=== PATIENT | female | born 1950 | race Caucasian/White ===

== ENCOUNTER 2018-01-29 15:13 | Inpatient (IN) ==
[2018-01-29] MEDS ORDERED: Ipratropium/Albuterol Neb 3 ML IH ONE (15:31)
[2018-01-29] MEDS ORDERED: methylPREDNISolone 125 MG/2 ML VIAL IVP ONE (15:31)
--- NOTE | 2018-01-29 15:35 | Emergency Department Note ---
Disposition Clinical Impression: COPD exacerbation Disposition: Admitted As Inpatient Condition: Good Forms: ED Satisfaction Letter Time of Disposition: 16:25 SOB HPI - General Chief Complaint: ED Shortness of Breath/Dyspnea Stated Complaint: HARSHAD Time Seen by Provider: 01/29/18 15:20 Source: patient Limitations: no limitations Nursing Notes Reviewed: Yes Vital Signs Reviewed: Yes - History of Present Illness 67-year-old female presents emergency room for shortness of breath. Onset 7 days ago. Went to urgent care over the weekend and was prescribed Augmentin and was given a steroid shot. No improvement on Thursday sell her PCP is switched her to Zithromax. She was also given breathing rest peeled treatments. She states that shortness of breath has not improved. Having problems with amb ulation. She denies any chest pain. No documented fevers. No sputum production. No lower leg pain or swelling. No history DVT or PE. She states she has never been diagnosed with COPD. History of smoking. No smoking in the last 12 years. - Related Data Allergies Allergy/AdvReac Type Severity Reaction Status Date / Time No Known Allergies Allergy Verified 01/29/18 15:23 All systems ED: reviewed and negative except as stated. Constitutional: Reports: as per HPI. Denies: fever Cardiovascular: Reports: dyspnea on exertion. Denies: chest pain, palpitations Respiratory: Reports: cough, dyspnea, wheezes Gastrointestinal: Reports: as per HPI Genitourinary: Reports: as per HPI Musculoskeletal: Reports: as per HPI Integumentary: Reports: as per HPI Neurological: Reports: as per HPI Psychiatric: Reports: as per HPI Endocrine: Reports: as per HPI Hematological/Lymphatic: Reports: as per HPI Allergic/Immunologic: Reports: as per HPI Past Medical History - Past Medical History Medical history: Reports: hypertension Psychiatric history: Reports: no psych history - Social History Smoking Status: Former smoker Smokeless Tobacco Status: No Alcohol use: Reports: none Drug use: Reports: none Physical Exam - General Limitations: no limitations General appearance: alert, in no apparent distress - Head Head exam: atraumatic, normocephalic - Eye Eye exam: Present: normal appearance - ENT ENT exam: normal exam, normal oropharynx - Neck Neck exam: Present: normal inspection - Chest Chest inspection: Present: symmetric chest wall rise - Respiratory Respiratory exam: Present: wheezes (Positive bilateral end expiratory wheezing.). Absent: respiratory distress - Cardiovascular Cardiovascular exam: Present: normal rhythm, tachycardia - Abdominal Exam Abdominal exam: Present: soft, Non-Tender, normal bowel sounds - Extremities Exam Extremities exam: Present: normal inspection - Expanded Lower Extremity Exam Hip/Pelvis exam: Present: normal inspection - Back Exam Back exam: Present: normal inspection - Neurological Exam Neurological exam: Present: alert, oriented X3 - Psychiatric Psychiatric exam: Present: normal affect, normal mood - Skin Skin exam: Present: warm, dry, intact Course Vital Signs Temperature 98.0 F 01/29/18 15:15 Pulse Rate 106 01/29/18 15:15 Respiratory Rate 24 01/29/18 15:15 Blood Pressure 173/108 01/29/18 15:15 O2 Sat by Pulse Oximetry 83 01/29/18 15:15 Temperature 98.0 F 01/29/18 15:17 Pulse Rate 86 01/29/18 16:22 Respiratory Rate 22 01/29/18 16:22 Blood Pressure 141/72 01/29/18 16:22 O2 Sat by Pulse Oximetry 100 01/29/18 16:22 Oxygen Delivery Oxygen Delivery Nasal Cannula Shortness of Breath/Dyspnea - MDM Narrative Medical decision making narrative: admit for copd flare up steroids given duoneb in ER admit for pulm txs - Medical Records Medical records reviewed: Yes I reviewed the patient's medical records. - Lab Data Lab results reviewed: Yes I reviewed the patient's lab results. Result diagrams: 01/29/18 15:30 01/29/18 15:30 Lab Results 01/29/18 01/29/18 01/29/18 Range/Units 15:30 15:30 15:30 WBC 6.9 (4.3-11.1) K/mcL RBC 5.50 H (3.82-4.97) M/mcL Hgb 16.6 H (11.5-15.4) g/dL Hct 47.9 H (35.3-44.9) % MCV 87.1 (83.0-100.0) fL MCH 30.2 (28.0-33.3) pg MCHC 34.7 (31.6-35.5) g/dL RDW 11.5 (11.5-14.5) % Plt Count 252 (140-400) K/mcL MPV 9.8 (9.4-12.4) fL Immature Gran % 0.3 (0-4) % Seg Neutrophils % 53.6 % Lymphocytes % 35.1 % Monocytes % 8.8 % Eosinophils % 1.3 % Basophils % 0.9 % Neutrophils # 3.7 (1.6-8.9) K/mcL Lymphocytes # 2.4 (0.6-4.6) K/mcL Monocytes # 0.6 (0.0-1.3) K/mcL Eosinophils # 0.1 (0.0-0.6) K/mcL Basophils # 0.1 (0.0-0.2) K/mcL Platelet Estimate Normal (Normal) Sodium 138 (136-145) mEq/L Potassium 3.5 (3.5-5.1) mEq/L Chloride 95 L (98-107) mEq/L Carbon Dioxide 35 H (23-29) mEq/L BUN 10 (8-23) mg/dL Creatinine 0.50 L (0.60-1.20) mg/dL Est GFR ( Amer) > 60 (> 60) Est GFR (Non-Af Amer) > 60 (> 60) BUN/Creatinine Ratio 20 (6-26) Glucose 97 (70-105) mg/dL Calculated Osmolality 285 (280-300) Lactic Acid 0.9 (0.5-2.2) mmol/L Calcium 9.7 (8.6-10.3) mg/dL Troponin I < 0.03 (< 0.04) ng/mL - Radiology Data Radiology results reviewed: Yes I reviewed the patient's radiology results. - EKG Data EKG attestation: Yes I reviewed and interpreted this EKG. EKG results narrative: EKG shows a rate of 96. Normal sinus rhythm. Normal axis. CA interval 124. QRS 77. QTC 419. His signs acute ischemia.
[2018-01-29 15:52] LABS: Basophils # 0.1 K/mcL (0.0-0.2); Basophils % 0.9 %; Eosinophils # 0.1 K/mcL (0.0-0.6); Eosinophils % 1.3 %; Hematocrit 47.9 % (35.3-44.9); Hemoglobin 16.6 g/dL (11.5-15.4); Immature Granulocytes % 0.3 % (0-4); Lymphocytes # 2.4 K/mcL (0.6-4.6); Lymphocytes % 35.1 %; Mean Corpuscular HGB Conc 34.7 g/dL (31.6-35.5); Mean Corpuscular Hemoglobin 30.2 pg (28.0-33.3); Mean Corpuscular Volume 87.1 fL (83.0-100.0); Mean Platelet Volume 9.8 fL (9.4-12.4); Monocytes # 0.6 K/mcL (0.0-1.3); Monocytes % 8.8 %; Neutrophils # 3.7 K/mcL (1.6-8.9); Platelet Count 252 K/mcL (140-400); Red Cell Distribution Width 11.5 % (11.5-14.5); Segmented Neutrophils % 53.6 %
[2018-01-29 16:10] LABS: BUN/Creatinine Ratio 20 (6-26); Blood Urea Nitrogen 10 mg/dL (8-23); Carbon Dioxide 35 mEq/L (23-29); Chloride 95 mEq/L (98-107); Glucose 97 mg/dL (70-105); Potassium 3.5 mEq/L (3.5-5.1); Sodium 138 mEq/L (136-145); eGFR For Non-African Americans > 60 (> 60)
[2018-01-29 16:11] LABS: Calcium 9.7 mg/dL (8.6-10.3); Osmolality,Calculated 285 (280-300); Troponin I < 0.03 ng/mL (< 0.04)
[2018-01-29 16:12] LABS: Platelet Estimate Normal (Normal)
[2018-01-29] MEDS ORDERED: Albuterol 2.5 MG/3 ML NEBULIZER IH PRN (16:40)
[2018-01-29] MEDS ORDERED: Naloxone 0.4 MG/ML INJ IVP PRN (16:41)
[2018-01-29] MEDS ORDERED: Acetaminophen 325 MG TABLET PO PRN (16:41)
[2018-01-29] MEDS ORDERED: 0.9 % Sodium Chloride 1,000 ML IVC SCH (17:15)
--- NOTE | 2018-01-29 17:17 | Internal Med History&Physical ---
Date of Encounter: 01/29/18 Time of Encounter: 17:14 Internal Medicine - H&P: HPI Chief complaint: Shortness of breath Admitted From: Home Plans for Post Hospital Care: Home History of present illness: Ms. Da Silva is a 67 year old female with PMH of HTN, ex-smoker who presented to the ER with complains of SOB which started about a week ago, she was apparently in her usual state of health till 7 days ago when she developed acute onset difficulty in breathing associated with chest tightness. She went to urgent care over the weekend and was prescribed Augmentin and was given a steroid shot. She had no improvement and re-presented to her PCP who switched her antibiotic to Zirthromax. She reports having had some improvement, but on the way to her mail box today, she couldn't catch her breath and she developed a hacking dry cough with significant respiratory distress She denies Orthopnea, ankle swelling, chest pain, she denies calf tenderness, She has no sick contacts or recent travels She is yet to receive her flu shot but denies any myalgias, sore throat, rhinorrhea. She is up to date with her immunization She denies n/v/d, abdominal pain, headaches or any neurologic symptoms On presentation to the ER, she was hypoxic to 87% on room air and improved with O2 supplement, steroids and breathing treatment Work up shows mild hemoconcentration, metabolic alkalosis, BNP and trop negative. CXR showed mild COPD She will be admitted inpatient per UR for COPDE with hypoxia requiring O2 supplementation, she is full code Past Med Surg Social Fam HX - Past Medical History Medical history: hypertension Psychiatric history: no psych history - Past Surgical History Additional surgical history: back, tubal ligation - Social History Smoking Status: Former smoker Smokeless Tobacco Status: No Alcohol use: none Drug use: none Internal Medicine - H&P: Meds Ascorbic Acid [Vitamin C] 500 mg PO DAILY 01/29/18 [History] Aspirin [Lo-Dose Aspirin EC] 81 mg PO DAILY 01/29/18 [History] Calcium Carb,Cit/D3/Phytostrol [Citracal D + Heart Health Tab] 1 tab PO DAILY 01/29/18 [History] Cholecalciferol (D-3) [Vitamin D] 1,000 unit PO DAILY 01/29/18 [History] Garlic [Daily Garlic Once-A-Day] 400 mg PO DAILY 01/29/18 [History] Ipratropium/Albuterol Sulfate [Iprat-Albut 0.5-3(2.5) mg/3 ml] 3 ml IH Q6H PRN 01/29/18 [History] Lisinopril/Hydrochlorothiazide [Zestoretic 20-25 mg Tablet] 1 tab PO DAILY 01/29/18 [History] Magnesium Oxide [Magnesium] 400 mg PO DAILY 01/29/18 [History] Potassium 99 mg PO DAILY 01/29/18 [History] Vitamin A 10,000 unit PO DAILY 01/29/18 [History] Vitamin E 1,000 unit PO DAILY 01/29/18 [History] Zinc Gluconate 100 mg PO DAILY 01/29/18 [History] amLODIPine [Norvasc] 5 mg PO DAILY 01/29/18 [History] Allergy/AdvReac Type Severity Reaction Status Date / Time No Known Allergies Allergy Verified 01/29/18 16:53 All Systems PM: A 10-system review of systems was performed and is negative for pertinent findings except as documented above in the HPI. - Constitutional Constitutional: as per HPI - EENT Eyes: as per HPI Ears: as per HPI Nose, mouth and throat: as per HPI - Cardiovascular Cardiovascular ROS IM: as per HPI - Respiratory Respiratory: as per HPI - Gastrointestinal Gastrointestinal: as per HPI - Genitourinary Genitourinary: as per HPI - Musculoskeletal Musculoskeletal ROS IM: as per HPI - Integumentary Integumentary IM: as per HPI - Neurological Neurological ROS: as per HPI - Hematologic/Lymphatic Hematologic/Lymphatic: as per HPI - Constitutional Vitals: Temp Pulse Resp BP Pulse Ox 98.0 F 86 22 141/72 100 01/29/18 15:17 01/29/18 16:22 01/29/18 16:22 01/29/18 16:22 01/29/18 16:22 General appearance: Present: cachectic, A&O X 3, pleasant, no acute distress, underweight Exam: see below - Head Head exam: Present: atraumatic, normocephalic - Eye Eye exam: Present: PERRL, conjuntiva pink, sclera anicteric Pupils: Present: PERRL - Neck Neck exam general surgery: Present: supple, trachea midline. Absent: lymphadenopathy - Respiratory Respiratory exam: Present: decreased breath sounds. Absent: accessory muscle use, rales, rhonchi, wheezes - Cardiovascular Cardiovascular exam: Present: RRR, +S1, +S2. Absent: diastolic murmur, gallop, rubs, systolic murmur - GI/Abdominal GI/Abdominal exam: Present: normal bowel sounds, soft, no peritoneal signs. Absent: distended, tenderness - Extremities Exam Extremities exam: Present: warm, radial pulses palpable and symmetrical. Absent: calf tenderness, cyanotic, pedal edema - Neurological Exam Neurological exam: Present: alert, CN II-XII intact, oriented X3, no focal defic its. Absent: pronater drift, facial droop, speech deficit - Skin Skin exam: Present: dry, intact Internal Med - H&P Results - Labs CBC & Chem 7: 01/29/18 15:30 01/29/18 15:30 Labs: Short CBC 01/29/18 Range/Units 15:30 WBC 6.9 (4.3-11.1) K/mcL Hgb 16.6 H (11.5-15.4) g/dL Hct 47.9 H (35.3-44.9) % Plt Count 252 (140-400) K/mcL Neutrophils # 3.7 (1.6-8.9) K/mcL BMP 01/29/18 15:30 Sodium 138 Potassium 3.5 Chloride 95 L Carbon Dioxide 35 H BUN 10 Creatinine 0.50 L Glucose 97 Calcium 9.7 Cardiac Enzymes 01/29/18 Range/Units 15:30 Troponin I < 0.03 (< 0.04) ng/mL - Impressions ITS Impressions Chest X-Ray 01/29/18 15:31 IMPRESSION: No acute process. Mild COPD D/ / Edwin Singh MD / Edwin Singh MD Interpreting Provider: Edwin Singh MD - Assessment and plan (1) COPD exacerbation Current Visit: Yes Status: Acute Assessment and plan: Continue duonebs q4h Alb q2prn Levaquin 500mg po daily Prednisone 40mg po daily Obtain ECHO O2 supplement, wean as tolerated may need walking test prior to discharge (2) Hypoxia Current Visit: Yes Status: Acute (3) Malnutrition Current Visit: Yes Status: Chronic Assessment and plan: BMI 17 with cachexia Nicking Machine Operator consult Qualifiers: Malnutrition type: protein-calorie malnutrition Protein-calorie malnutrition severity: unspecified severity Qualified Code(s): E46 - Unsp ecified protein-calorie malnutrition (4) Hypertension Current Visit: Yes Status: Chronic Assessment and plan: Resume home norvasc, Lisinopril-HCTZ Qualifiers: Hypertension type: essential hypertension Qualified Code(s): I10 - Essential (primary) hypertension (5) Dehydration Current Visit: Yes Status: Acute Assessment and plan: evidenced by metab alkalosis and hemoconcentration gentle hydration with saline -1000cc only Follow rpt labs a.m - Time Spent With Patient Total time spent is greater than 50% in coordination of care (as documented) at patient's floor/unit and/or counseling patient:
[2018-01-29] MEDS: Ipratropium/Albuterol Neb 3 ML IH SCH ×2 (19:20→22:54)
[2018-01-29] MEDS: levoFLOXacin 500 MG TABLET PO SCH (19:24)
[2018-01-30] MEDS: Ipratropium/Albuterol Neb 3 ML IH SCH ×4 (04:35→23:45)
[2018-01-30 05:03] LABS: Basophils % 0.3 %; Immature Granulocytes % 0.3 % (0-4); Lymphocytes # 0.6 K/mcL (0.6-4.6); Lymphocytes % 18.9 %; Mean Corpuscular Hemoglobin 30.3 pg (28.0-33.3); Mean Corpuscular Volume 86.6 fL (83.0-100.0); Mean Platelet Volume 9.9 fL (9.4-12.4); Monocytes # 0.1 K/mcL (0.0-1.3); Monocytes % 3.4 %; Neutrophils # 2.5 K/mcL (1.6-8.9); Platelet Count 226 K/mcL (140-400); Red Blood Count 4.62 M/mcL (3.82-4.97); Red Cell Distribution Width 11.5 % (11.5-14.5); Segmented Neutrophils % 77.1 %
[2018-01-30] MEDS: *HR* Enoxaparin 40 MG/0.4 ML SYRINGE SQ SCH (05:11)
[2018-01-30 05:20] LABS: Platelet Estimate Normal (Normal); Reactive Lymphocytes Present (Not Present)
[2018-01-30 05:22] LABS: BUN/Creatinine Ratio 19 (6-26); Blood Urea Nitrogen 8 mg/dL (8-23); Calcium 8.9 mg/dL (8.6-10.3); Carbon Dioxide 33 mEq/L (23-29); Chloride 99 mEq/L (98-107); Glucose 132 mg/dL (70-105); Osmolality,Calculated 284 (280-300); Potassium 3.9 mEq/L (3.5-5.1); Sodium 137 mEq/L (136-145); eGFR For Non-African Americans > 60 (> 60)
[2018-01-30] MEDS: predniSONE 20 MG TABLET PO SCH (09:00)
[2018-01-30] MEDS: Ascorbic Acid 500 MG TABLET PO SCH (09:00)
[2018-01-30] MEDS: Cholecalciferol (D-3) 1,000 UNIT TABLET PO SCH (09:00)
[2018-01-30] MEDS: Aspirin Enteric Coated 81 MG Tablet PO SCH (09:00)
[2018-01-30] MEDS: D3 PO SCH (09:01)
[2018-01-30] MEDS: CALCIUM CARB CIT PO SCH (09:01)
[2018-01-30] MEDS: PHYTOSTROL PO SCH (09:01)
[2018-01-30] MEDS: amLODIPine 5 MG TABLET PO SCH (09:01)
--- NOTE | 2018-01-30 09:08 | Internal Med Progress Note ---
Hospitalist Progress Note - Encounter Date of Encounter: 01/30/18 Time of Encounter: 08:35 - Subjective Interval History: 67 F admitted and being managed for COPDE with hypoxia She reports clinical improvement, no new complains, still on O2 - Exam Vitals: Temp Pulse Resp BP Pulse Ox 97.6 F 91 16 134/76 94 01/30/18 07:24 01/30/18 07:24 01/30/18 07:24 01/30/18 07:24 01/30/18 07:24 Exam: Vital signs noted Gen: not in distress, pleasant HEENT: Moist oral mucosa, not cyanotic, not jaundiced, no conjunctival pallor Chest: equal chest movement, no chest wall tenderness, no erythema Resp: CTAB, no added sounds Heart: S1, S2 only, no m/g/r Abdomen: soft, not tender, no palpably enlarged organs Extremities: No piting edema bilaterally Neuro: AAOX3, no focal deficits Psych: Appropriate mood and affect - Assessment and Plan (1) COPD exacerbation Current Visit: Yes Status: Acute Assessment and Plan: Continue duonebs q4h Alb q2prn Levaquin 500mg po daily Prednisone 40mg po daily Obtain ECHO, pending O2 supplement, wean as tolerated may need walking test prior to discharge (2) Hypoxia Current Visit: Yes Status: Acute Assessment and Plan: Continue o2 Wean as tolerated If continues to require O2 after 24 hrs, will perform walking test (3) Malnutrition Current Visit: Yes Status: Chronic Assessment and Plan: BMI 17 with cachexia Ground Crew Chief consult (4) Hypertension Current Visit: Yes Status: Chronic Assessment and Plan: Continue home norvasc, Lisinopril-HCTZ (5) Dehydration Current Visit: Yes Status: Resolved Assessment and Plan: evidenced by metab alkalosis and hemoconcentration Resolved with IVF hydration DVT Prophylaxis: SQ heparin - Time Spent with Patient Total time spent is greater than 50% in coordination of care (as documented) at patient's floor/unit and/or counseling patient: Plan of Care Discussed with: patient Internal Medicine: Result - Labs CBC & Chem 7: 01/30/18 04:26 01/30/18 04:26 Labs: Short CBC 01/29/18 01/30/18 Range/Units 15:30 04:26 WBC 6.9 3.2 L D (4.3-11.1) K/mcL Hgb 16.6 H 14.0 D (11.5-15.4) g/dL Hct 47.9 H 40.0 (35.3-44.9) % Plt Count 252 226 (140-400) K/mcL Neutrophils # 3.7 2.5 (1.6-8.9) K/mcL BMP 01/29/18 01/30/18 15:30 04:26 Sodium 138 137 Potassium 3.5 3.9 Chloride 95 L 99 Carbon Dioxide 35 H 33 H BUN 10 8 Creatinine 0.50 L 0.42 L Glucose 97 132 H Calcium 9.7 8.9 Cardiac Enzymes 01/29/18 Range/Units 15:30 Troponin I < 0.03 (< 0.04) ng/mL - Impressions Impressions Chest X-Ray 01/29/18 15:31 IMPRESSION: No acute process. Mild COPD D/ / Edwin Singh MD / Edwin Singh MD Interpreting Provider: Edwin Singh MD Consult Discharge Plan - Plan Referrals: Yudi Araya MD [Primary Care Provider] - (3) Malnutrition Qualifiers: Malnutrition type: protein-calorie malnutrition Protein-calorie malnutrition severity: unspecified severity Qualified Code(s): E46 - Unspecified protein- calorie malnutrition (4) Hypertension Qualifiers: Hypertension type: essential hypertension Qualified Code(s): I10 - Essential (primary) hypertension
[2018-01-30] MEDS: levoFLOXacin 500 MG TABLET PO SCH (16:43)
[2018-01-31] MEDS: Ipratropium/Albuterol Neb 3 ML IH SCH ×4 (04:38→22:04)
[2018-01-31] MEDS: *HR* Enoxaparin 40 MG/0.4 ML SYRINGE SQ SCH (05:06)
[2018-01-31] MEDS: amLODIPine 5 MG TABLET PO SCH (08:39)
[2018-01-31] MEDS: Cholecalciferol (D-3) 1,000 UNIT TABLET PO SCH (08:39)
[2018-01-31] MEDS: Aspirin Enteric Coated 81 MG Tablet PO SCH (08:40)
[2018-01-31] MEDS: Ascorbic Acid 500 MG TABLET PO SCH (08:40)
[2018-01-31] MEDS: predniSONE 20 MG TABLET PO SCH (08:40)
[2018-01-31] MEDS: D3 PO SCH (09:12)
[2018-01-31] MEDS: CALCIUM CARB CIT PO SCH (09:12)
[2018-01-31] MEDS: PHYTOSTROL PO SCH (09:12)
--- NOTE | 2018-01-31 09:57 | Internal Med Progress Note ---
Hospitalist Progress Note - Encounter Date of Encounter: 01/31/18 Time of Encounter: 09:57 - Subjective Interval History: 67 F admitted and being managed for COPDE with hypoxia She reports clinical improvement, no new complains, still on O2 per RN, O2 dropped to 70s when patient got up to go to restroom Will perform 6 minutes walk test today Continue current management - Exam Vitals: Temp Pulse Resp BP Pulse Ox 97.5 F L 91 16 148/82 94 01/31/18 07:39 01/31/18 07:39 01/31/18 07:39 01/31/18 07:39 01/31/18 07:39 Exam: Vital signs noted Gen: not in distress, pleasant HEENT: Moist oral mucosa, not cyanotic, not jaundiced, no conjunctival pallor Chest: equal chest movement, no chest wall tenderness, no erythema Resp: CTAB, no added sounds, diminished air entry on lung bases Heart: S1, S2 only, no m/g/r Abdomen: soft, not tender, no palpably enlarged organs Extremities: No piting edema bilaterally Neuro: AAOX3, no focal deficits Psych: Appropriate mood and affect - Assessment and Plan (1) COPD exacerbation Current Visit: Yes Status: Acute Assessment and Plan: Continue duonebs q4h Alb q2prn Levaquin 500mg po daily Prednisone 40mg po daily Obtain ECHO, pending O2 supplement, wean as tolerated walking test today (2) Hypoxia Current Visit: Yes Status: Acute Assessment and Plan: Continue o2 Wean as tolerated 6 mins walk test today (3) Malnutrition Current Visit: Yes Status: Chronic Assessment and Plan: BMI 17 with cachexia Application Technician consulted, input noted and appreciated, continue ensure (4) Hypertension Current Visit: Yes Status: Chronic Assessment and Plan: Continue home norvasc, Lisinopril-HCTZ (5) Dehydration Current Visit: Yes Status: Resolved Assessment and Plan: evidenced by metab alkalosis and hemoconcentration Resolved with IVF hydration DVT Prophylaxis: SQ heparin - Time Spent with Patient Total time spent is greater than 50% in coordination of care (as documented) at patient's floor/unit and/or counseling patient: Internal Medicine: Result - Labs CBC & Chem 7: 01/30/18 04:26 01/30/18 04:26 Consult Discharge Plan - Plan Referrals: Marshal,Yudi Vianey, MD [Primary Care Provider] - (3) Malnutrition Qualifiers: Malnutrition type: protein-calorie malnutrition Protein-calorie malnutrition severity: unspecified severity Qualified Code(s): E46 - Unspecified protein- calorie malnutrition (4) Hypertension Qualifiers: Hypertension type: essential hypertension Qualified Code(s): I10 - Essential (primary) hypertension
[2018-01-31] MEDS: levoFLOXacin 500 MG TABLET PO SCH (16:33)
[2018-02-01] MEDS: Ipratropium/Albuterol Neb 3 ML IH SCH ×2 (04:07→10:13)
[2018-02-01] MEDS: *HR* Enoxaparin 40 MG/0.4 ML SYRINGE SQ SCH (05:53)
[2018-02-01 07:25] VITALS: BP 131/87
--- NOTE | 2018-02-01 09:40 | Discharge Summary ---
- NOTES TO OUTPATIENT PROVIDER Notes to Outpatient Provider: Patient was admitted for COPDE, with hypoxia. Incidental diagnosis of severe malnutrition. She has made significant clinical improvement and dishcarged home on prednisone taper, levaquin and symbicort. Jute Bag Cutting Machine Operator also recommended ensure enlive BID with meals. PFT is scheduled as out-patient. Follow up with own PCP and recommed referal to hand packer/packager. She also qualified for O2 , dropping in saturation to 86% in 1 minute of exertion. Discharged home with O2. Orders not resulted at time of discharge: Pending orders 01/29/18 15:31 ECG 12 lead ECG [ECG] Stat Date of Encounter: 02/01/18 Time of Encounter: 09:40 - Discharge Diagnosis (1) COPD exacerbation Priority: Primary Status: Acute (2) Hypoxia Priority: Primary Status: Acute (3) Malnutrition Priority: Secondary Status: Chronic Qualifiers: Malnutrition type: protein-calorie malnutrition Protein-calorie malnutrition severity: severe Qualified Code(s): E43 - Unspecified severe protein-calorie malnutrition (4) Hypertension Priority: Secondary Status: Chronic Qualifiers: Hypertension type: essential hypertension Qualified Code(s): I10 - Essential (primary) hypertension (5) Dehydration Priority: Primary Status: Resolved Hospital course: Ms. Da Silva is a 67 year old female with PMH of HTN Patient was admitted for COPDE, with hypoxia. Incidental diagnosis of severe malnutrition. ECHO was done and revealed EF 60-65%, normal LV diastolic function, Mild concentric LVH, mild to moderate TR and mid-moderate Pulm HTN. All segments show normal wall motion She has made significant clinical improvement and discharged home on prednisone taper, levaquin for 4 days and symbicort. Jute Bag Cutting Machine Operator also recommended ensure enlive BID with meals. PFT is scheduled as out-patient. Follow up with own PCP and recommend referral to hand packer/packager. She also qualified for O2 , dropping in saturation to 86% in 1 minute of exertion. Discharged home with O2. Discharge discussed with: patient, family, nurse - Time Spent with Patient Total time spent providing and/or coordinating discharge services: Less than 30 minutes - Discharge Medications Prescriptions: Budesonide/Formoterol 80/4.5 [Symbicort] 1 puff IH BID #1 inhaler Lactose-Reduced Food [Ensure Enlive] 1 ml PO BID #60 bottle levoFLOXacin [Levaquin] 500 mg PO Q24H #4 tablet predniSONE [PredniSONE] 40 mg PO DAILY #20 tablet Home Medications: Ascorbic Acid [Vitamin C] 500 mg PO DAILY 01/29/18 [History] Aspirin [Lo-Dose Aspirin EC] 81 mg PO DAILY 01/29/18 [History] Calcium Carb,Cit/D3/Phytostrol [Citracal D + Heart Health Tab] 1 tab PO DAILY 01/29/18 [History] Cholecalciferol (D-3) [Vitamin D] 1,000 unit PO DAILY 01/29/18 [History] Garlic [Daily Garlic Once-A-Day] 400 mg PO DAILY 01/29/18 [History] Ipratropium/Albuterol Sulfate [Iprat-Albut 0.5-3(2.5) mg/3 ml] 3 ml IH Q6H PRN 01/29/18 [History] Lisinopril/Hydrochlorothiazide [Zestoretic 20-25 mg Tablet] 1 tab PO DAILY 01/29/18 [History] Magnesium Oxide [Magnesium] 400 mg PO DAILY 01/29/18 [History] Potassium 99 mg PO DAILY 01/29/18 [History] Vitamin A 10,000 unit PO DAILY 01/29/18 [History] Vitamin E 1,000 unit PO DAILY 01/29/18 [History] Zinc Gluconate 100 mg PO DAILY 01/29/18 [History] amLODIPine [Norvasc] 5 mg PO DAILY 01/29/18 [History] Budesonide/Formoterol 80/4.5 [Symbicort] 1 puff IH BID #1 inhaler 02/01/18 [Rx] Lactose-Reduced Food [Ensure Enlive] 1 ml PO BID #60 bottle 02/01/18 [Rx] levoFLOXacin [Levaquin] 500 mg PO Q24H #4 tablet 02/01/18 [Rx] predniSONE [PredniSONE] 40 mg PO DAILY #20 tablet 02/01/18 [Rx] Allergies/Adverse Reactions: Allergy/AdvReac Type Severity Reaction Status Date / Time No Known Allergies Allergy Verified 01/29/18 16:53 Date of admission: 01/29/18 16:55 Primary care physician: Yudi Araya MD Consults: 01/29/18 16:40 Consult to Nurse Navigator [CONS] Routine Comment: 01/29/18 17:30 consult to prosthetics lab technician [Consult to Nutrition] [CONS] Routine Comment: Consulting Provider: NUTRITION Reason for Dietary Consult: PO Supplementation Discharging clinician: Patricio Bauman Anticipated date of discharge: 02/01/18 - Constitutional Vitals: Temp Pulse Resp BP Pulse Ox 97.5 F L 89 16 131/87 97 02/01/18 07:24 02/01/18 07:24 02/01/18 07:24 02/01/18 07:24 02/01/18 07:24 General appearance: Present: cachectic, A&O X 3, pleasant, no acute distress, underweight Exam: Vital signs noted Gen: not in distress, pleasant HEENT: Moist oral mucosa, not cyanotic, not jaundiced, no conjunctival pallor Chest: equal chest movement, no chest wall tenderness, no erythema Resp: CTAB, no added sounds, diminished air entry on lung bases Heart: S1, S2 only, no m/g/r Abdomen: soft, not tender, no palpably enlarged organs Extremities: No piting edema bilaterally Neuro: AAOX3, no focal deficits Psych: Appropriate mood and affect - Patient Status Disposition: Home, Self-Care Condition: Good Functional capacity at discharge: independent ambulation Overall status at discharge: patient is progressing back to baseline - Discharge Instructions Follow Up With: Yudi Araya MD [Primary Care Provider] - - Diet and Activity Activity: resume usual activities as tolerated, wear oxygen at all times Diet: low salt diet, other (enusre enlive BID )
[2018-02-01] MEDS ORDERED: Ondansetron 4 MG/2 ML VIAL IVP PRN ×2 (10:18→10:22)
[2018-02-01] MEDS: amLODIPine 5 MG TABLET PO SCH (10:24)
[2018-02-01] MEDS: Aspirin Enteric Coated 81 MG Tablet PO SCH (10:24)
[2018-02-01] MEDS: Cholecalciferol (D-3) 1,000 UNIT TABLET PO SCH (10:24)
[2018-02-01] MEDS: predniSONE 20 MG TABLET PO SCH (10:24)
[2018-02-01] MEDS: PHYTOSTROL PO SCH (10:24)
[2018-02-01] MEDS: D3 PO SCH (10:24)
[2018-02-01] MEDS: Ascorbic Acid 500 MG TABLET PO SCH (10:24)
[2018-02-01] MEDS: CALCIUM CARB CIT PO SCH (10:24)
[2018-02-01] MEDS: levoFLOXacin 500 MG TABLET PO SCH (11:46)
--- NOTE | 2018-02-01 15:33 | Electrocardiograph Report ---
[place] [id number] Test Date: 2018-01-29 Pat Name: Radha Da Silva Department: [id number] Room: 3B46 Gender: F Bobcat Operator: : [id number] Requested By: Rome Lara Order Number: [id number] Reading MD: Dora Mckeon Measurements Intervals [place] Rate: 96 P: 84 [place]: 124 QRS: 85 QRSD: 77 T: 50 QT: 331 QTc: 419 Interpretive Statements Sinus rhythm Right atrial enlargement Borderline right axis deviation Minimal ST depression, inferior leads Electronically Signed On 02-01-2018 15:32:16 EST by Dora Mckeon
== END 2018-02-01 13:14 | disposition home or self-care (01) | DRG 190 ==
LOC: SUATTDRO → EMEROOARM 15:13 → 3BNU 16:55
PROVIDERS: ADMIT Internal Medicine; ATTEND Internal Medicine

== ENCOUNTER 2021-02-02 17:35 | Inpatient (IN) ==
[2021-02-02 18:22] LABS: Basophils % 0.2 %; Eosinophils % 0.1 %; Hematocrit 44.3 % (35.3-44.9); Hemoglobin 15.6 g/dL (11.5-15.4); Immature Granulocytes % 0.4 % (0-4); Lymphocytes # 1.1 K/mcL (0.6-4.6); Lymphocytes % 8.2 %; Mean Corpuscular HGB Conc 35.2 g/dL (31.6-35.5); Mean Corpuscular Hemoglobin 30.4 pg (28.0-33.3); Mean Corpuscular Volume 86.2 fL (83.0-100.0); Mean Platelet Volume 9.3 fL (9.4-12.4); Monocytes # 1.3 K/mcL (0.0-1.3); Monocytes % 9.5 %; Neutrophils # 11.1 K/mcL (1.6-8.9); Platelet Count 415 K/mcL (140-400); Red Blood Count 5.14 M/mcL (3.82-4.97); Red Cell Distribution Width 12.2 % (11.5-14.5); Segmented Neutrophils % 81.6 %; White Blood Count 13.5 K/mcL (4.3-11.1)
[2021-02-02 18:33] LABS: Bilirubin,Urine Negative (Negative); Blood,Urine Negative (Negative); Clarity,Urine Turbid (Clear); Color,Urine Yellow (Yellow); Glucose,Urine (UA) Normal (Normal); Hyaline Casts,Urine Many per lpf (None Seen); Ketones,Urine Trace mg/dL (Negative); Leukocyte Esterase,Urine Trace (Negative); Mucus,Urine Few per lpf (None-Few); Nitrite,Urine Negative (Negative); PH,Urine 5.5 pH Units (5.0-8.0); Protein,Urine 30 mg/dL (Neg-Trace); RBC,Urine 0-3 per hpf (0-3); Specific Gravity,Urine 1.023 (1.010-1.025); Squamous Epithelial Cell,Urine Moderate per hpf (None-Few); Urobilinogen,Urine Normal (Normal)
[2021-02-02 18:42] LABS: Albumin 4.1 g/dL (3.5-5.7); Albumin/Globulin Ratio 1.5 (1.1-2.2); Bilirubin,Total 0.9 mg/dL (0.3-1.0); Calcium 10.7 mg/dL (8.6-10.3); Globulin 2.7 g/dL (2.4-3.5); Potassium 3.6 mEq/L (3.5-5.1); Total Protein 6.8 g/dL (6.4-8.9)
[2021-02-02] MEDS ORDERED: Ondansetron 4 MG/2 ML VIAL IVP ONE (18:45)
[2021-02-02] MEDS ORDERED: 0.9 % Sodium Chloride 1,000 ML IV ONE (18:45)
[2021-02-02] MEDS ORDERED: Isovue-370 500 ML BOTTLE IVP ONE (19:32)
[2021-02-02] MEDS ORDERED: Ipratropium/Albuterol Neb 3 ML IH ONE (21:37)
[2021-02-02] MEDS ORDERED: Morphine Sulfate 2 MG/ML SYRINGE IVP PRN (22:25)
[2021-02-02] MEDS ORDERED: Ondansetron 4 MG/2 ML VIAL IVP PRN (22:25)
[2021-02-02] MEDS ORDERED: Acetaminophen IV 1,000 MG/100 ML BAG IVPB ONE (22:31)
[2021-02-02] MEDS ORDERED: *HR* Vasopressin 20 UNIT/ML VIAL ONE (22:31)
[2021-02-02] MEDS ORDERED: Famotidine 20 MG/2 ML VIAL ONE (22:31)
[2021-02-02] MEDS ORDERED: *HR* Rocuronium Bromide 50 MG/5 ML VIAL ONE (22:33)
[2021-02-02] MEDS ORDERED: *HR* FentaNYL (PF) 100 MCG/2 ML VIAL ONE (22:33)
[2021-02-02] MEDS ORDERED: *HR* Propofol 200 MG/20 ML VIAL IVP ONE (22:33)
[2021-02-02] MEDS ORDERED: Lidocaine -MPF 2% 5 ML VIAL ONE (22:33)
[2021-02-02] MEDS ORDERED: Lidocaine HCL 4 ML Topical Solution (Laryng-O-Jet Kit Sterile Pak) TP ONE (22:33)
[2021-02-02] MEDS ORDERED: CefOXitin 1,000 MG VIAL ONE (22:36)
[2021-02-02] MEDS ORDERED: ceFAZolin 1,000 MG in Water for inj. (sterile) 10 ML IVP ONE (23:26)
[2021-02-02] MEDS ORDERED: Ondansetron 4 MG/2 ML VIAL ONE (23:56)
[2021-02-03] MEDS ORDERED: Sugammadex Sodium 200 MG/2 ML VIAL IV ONE (00:23)
[2021-02-03] MEDS ORDERED: Ondansetron 4 MG/2 ML VIAL IVP PRN (01:01)
[2021-02-03] MEDS ORDERED: *HR* Metoprolol 5 MG/5 ML VIAL IVP PRN (01:01)
[2021-02-03] MEDS ORDERED: Naloxone 0.4 MG/ML INJ IVP PRN ×2 (01:25)
[2021-02-03] MEDS ORDERED: Melatonin 3 MG TABLET PO PRN ×2 (01:25)
[2021-02-03] MEDS: 0.9 % Sodium Chloride 1,000 ML IVC SCH (01:58)
[2021-02-03] MEDS ORDERED: Ipratropium/Albuterol Neb 3 ML IH PRN ×2 (01:58→04:00)
[2021-02-03] MEDS: Albuterol 2.5 MG/3 ML NEBULIZER IH SCH ×4 (03:22→20:02)
[2021-02-03 06:45] LABS: Basophils % 0.1 %; Immature Granulocytes % 0.4 % (0-4); Lymphocytes # 0.4 K/mcL (0.6-4.6); Lymphocytes % 2.4 %; Mean Corpuscular HGB Conc 33.4 g/dL (31.6-35.5); Mean Corpuscular Hemoglobin 29.5 pg (28.0-33.3); Mean Corpuscular Volume 88.2 fL (83.0-100.0); Mean Platelet Volume 9.2 fL (9.4-12.4); Neutrophils # 15.3 K/mcL (1.6-8.9); Platelet Count 331 K/mcL (140-400); Red Blood Count 4.65 M/mcL (3.82-4.97); Red Cell Distribution Width 12.3 % (11.5-14.5); Segmented Neutrophils % 91.1 %; White Blood Count 16.8 K/mcL (4.3-11.1)
[2021-02-03 07:04] LABS: BUN/Creatinine Ratio 32 (6-26); Blood Urea Nitrogen 21 mg/dL (8-23); Carbon Dioxide 32 mEq/L (23-29); Chloride 96 mEq/L (98-107); Glucose 121 mg/dL (70-105); Magnesium 1.3 mg/dL (1.6-2.6); Osmolality,Calculated 286 (280-300); Potassium 3.2 mEq/L (3.5-5.1); Sodium 136 mEq/L (136-145); eGFR For African Americans > 60 (> 60); eGFR For Non-African Americans > 60 (> 60)
[2021-02-03] MEDS ORDERED: Tiotropium 10 INH DOSE IH ONE (07:20)
[2021-02-03 07:23] LABS: Hemoglobin 13.7 g/dL (11.5-15.4)
[2021-02-03] MEDS: Budesonide/Formoterol 80/4.5 1 PUFF INH IH SCH ×2 (07:36→20:03)
[2021-02-03] MEDS: Tiotropium 10 INH DOSE IH SCH (07:36)
[2021-02-03] MEDS: Aspirin Enteric Coated 81 MG Tablet PO SCH (10:10)
[2021-02-03] MEDS: (Potassium 99 MG Tablet) PO SCH (10:10)
[2021-02-03] MEDS: ZINC GLUCONATE 100 MG PO SCH (10:10)
[2021-02-03] MEDS: Magnesium Oxide 400 MG TABLET PO SCH (10:10)
[2021-02-03] MEDS: Cholecalciferol (D-3) 1,000 UNIT (25MCG) TABLET PO SCH (10:11)
[2021-02-03] MEDS: Ascorbic Acid 500 MG TABLET PO SCH (10:11)
[2021-02-03] MEDS: Vitamin E 200 UNIT (90MG) CAPSULE PO SCH (10:11)
[2021-02-03] MEDS: CeFAZolin 2 GM/120 ML BAG IVPB SCH ×2 (10:15→16:12)
[2021-02-03] MEDS: Lisinopril-HCTZ 20-12.5mg TABLET PO SCH (13:33)
[2021-02-03] MEDS: amLODIPine 5 MG TABLET PO SCH (13:33)
[2021-02-03] MEDS: Mirtazapine 15 MG TABLET PO SCH (21:00)
[2021-02-04] MEDS: Albuterol 2.5 MG/3 ML NEBULIZER IH SCH ×5 (03:47→20:30)
[2021-02-04] MEDS: ZINC GLUCONATE 100 MG PO SCH ×2 (06:56→09:53)
[2021-02-04] MEDS: (Potassium 99 MG Tablet) PO SCH ×2 (06:56→09:53)
[2021-02-04] MEDS: amLODIPine 5 MG TABLET PO SCH ×2 (06:56→09:52)
[2021-02-04] MEDS: Lisinopril-HCTZ 20-12.5mg TABLET PO SCH (06:56)
[2021-02-04] MEDS: Aspirin Enteric Coated 81 MG Tablet PO SCH ×2 (06:56→09:52)
[2021-02-04] MEDS: Cholecalciferol (D-3) 1,000 UNIT (25MCG) TABLET PO SCH ×2 (06:56→09:52)
[2021-02-04] MEDS: Ascorbic Acid 500 MG TABLET PO SCH ×2 (06:56→09:52)
[2021-02-04] MEDS: Vitamin E 200 UNIT (90MG) CAPSULE PO SCH ×2 (06:56→09:52)
[2021-02-04] MEDS: Magnesium Oxide 400 MG TABLET PO SCH ×2 (06:56→09:53)
[2021-02-04] MEDS ORDERED: NON-FORMULARY MEDICATION 1 EACH EACH (Amlodipine Besylate 10 MG Tablet) PO SCH (09:00)
[2021-02-04] MEDS: Budesonide/Formoterol 80/4.5 1 PUFF INH IH SCH ×2 (09:11→20:30)
[2021-02-04] MEDS: Tiotropium 10 INH DOSE IH SCH (09:11)
[2021-02-04 09:34] LABS: Basophils % 0.1 %; Hematocrit 40.9 % (35.3-44.9); Hemoglobin 13.7 g/dL (11.5-15.4); Immature Granulocytes % 0.5 % (0-4); Lymphocytes # 0.7 K/mcL (0.6-4.6); Mean Corpuscular HGB Conc 33.5 g/dL (31.6-35.5); Mean Corpuscular Hemoglobin 30.2 pg (28.0-33.3); Mean Corpuscular Volume 90.1 fL (83.0-100.0); Mean Platelet Volume 9.6 fL (9.4-12.4); Monocytes # 1.1 K/mcL (0.0-1.3); Neutrophils # 11.5 K/mcL (1.6-8.9); Platelet Count 332 K/mcL (140-400); Red Blood Count 4.54 M/mcL (3.82-4.97); Red Cell Distribution Width 12.6 % (11.5-14.5); Segmented Neutrophils % 86.4 %; White Blood Count 13.3 K/mcL (4.3-11.1)
[2021-02-04 09:52] LABS: BUN/Creatinine Ratio 38 (6-26); Blood Urea Nitrogen 20 mg/dL (8-23); Calcium 9.3 mg/dL (8.6-10.3); Carbon Dioxide 31 mEq/L (23-29); Chloride 100 mEq/L (98-107); Glucose 86 mg/dL (70-105); Osmolality,Calculated 298 (280-300); Potassium 3.2 mEq/L (3.5-5.1); Sodium 143 mEq/L (136-145); eGFR For African Americans > 60 (> 60); eGFR For Non-African Americans > 60 (> 60)
[2021-02-04] MEDS: 0.9 % Sodium Chloride 1,000 ML IVC SCH (15:05)
[2021-02-04 16:27] LABS: Bacteria,Urine Few per hpf (None-Few); Bilirubin,Urine Negative (Negative); Blood,Urine Moderate (Negative); Clarity,Urine Clear (Clear); Color,Urine Light-Yellow (Yellow); Glucose,Urine (UA) Normal (Normal); Hyaline Casts,Urine Few per lpf (None Seen); Ketones,Urine 60 mg/dL (Negative); Leukocyte Esterase,Urine Negative (Negative); Mucus,Urine Few per lpf (None-Few); Nitrite,Urine Negative (Negative); Protein,Urine Trace mg/dL (Neg-Trace); RBC,Urine 50-100 per hpf (0-3); Specific Gravity,Urine 1.021 (1.010-1.025); Urobilinogen,Urine Normal (Normal)
[2021-02-04] MEDS: Mirtazapine 15 MG TABLET PO SCH (20:41)
[2021-02-05] MEDS: Albuterol 2.5 MG/3 ML NEBULIZER IH SCH ×4 (03:32→22:05)
[2021-02-05] MEDS: 0.9 % Sodium Chloride 1,000 ML IVC SCH ×4 (07:16→13:05)
[2021-02-05] MEDS: amLODIPine 5 MG TABLET PO SCH (08:11)
[2021-02-05] MEDS: Cholecalciferol (D-3) 1,000 UNIT (25MCG) TABLET PO SCH (08:11)
[2021-02-05] MEDS: Vitamin E 200 UNIT (90MG) CAPSULE PO SCH (08:12)
[2021-02-05] MEDS: Ascorbic Acid 500 MG TABLET PO SCH (08:13)
[2021-02-05] MEDS: Aspirin Enteric Coated 81 MG Tablet PO SCH (08:13)
[2021-02-05] MEDS: Magnesium Oxide 400 MG TABLET PO SCH (08:14)
[2021-02-05] MEDS: ZINC GLUCONATE 100 MG PO SCH (08:15)
[2021-02-05] MEDS: (Potassium 99 MG Tablet) PO SCH (08:15)
[2021-02-05] MEDS: Tiotropium 10 INH DOSE IH SCH (10:09)
[2021-02-05] MEDS: Budesonide/Formoterol 80/4.5 1 PUFF INH IH SCH ×2 (10:09→22:06)
[2021-02-05] MEDS: Mirtazapine 15 MG TABLET PO SCH (19:57)
[2021-02-06] MEDS: Albuterol 2.5 MG/3 ML NEBULIZER IH SCH ×4 (03:30→21:15)
[2021-02-06] MEDS: Cholecalciferol (D-3) 1,000 UNIT (25MCG) TABLET PO SCH (10:09)
[2021-02-06] MEDS: amLODIPine 5 MG TABLET PO SCH (10:09)
[2021-02-06] MEDS: Aspirin Enteric Coated 81 MG Tablet PO SCH (10:09)
[2021-02-06] MEDS: Ascorbic Acid 500 MG TABLET PO SCH (10:09)
[2021-02-06] MEDS: Vitamin E 200 UNIT (90MG) CAPSULE PO SCH (10:09)
[2021-02-06] MEDS: Magnesium Oxide 400 MG TABLET PO SCH (10:09)
[2021-02-06] MEDS: (Potassium 99 MG Tablet) PO SCH (10:09)
[2021-02-06] MEDS: ZINC GLUCONATE 100 MG PO SCH (10:10)
[2021-02-06] MEDS: 0.9 % Sodium Chloride 1,000 ML IVC SCH (10:16)
[2021-02-06] MEDS: Tiotropium 10 INH DOSE IH SCH (10:37)
[2021-02-06] MEDS: Budesonide/Formoterol 80/4.5 1 PUFF INH IH SCH ×2 (10:38→21:15)
[2021-02-06] MEDS: Mirtazapine 15 MG TABLET PO SCH (21:19)
[2021-02-07 01:28] LABS: Hematocrit 35.9 % (35.3-44.9); Mean Corpuscular HGB Conc 33.1 g/dL (31.6-35.5); Mean Corpuscular Hemoglobin 29.8 pg (28.0-33.3); Mean Platelet Volume 9.8 fL (9.4-12.4); Platelet Count 255 K/mcL (140-400); Red Blood Count 3.99 M/mcL (3.82-4.97); Red Cell Distribution Width 11.9 % (11.5-14.5); White Blood Count 9.3 K/mcL (4.3-11.1)
[2021-02-07 01:33] LABS: Hemoglobin 11.9 g/dL (11.5-15.4)
[2021-02-07 01:39] LABS: BUN/Creatinine Ratio 25 (6-26); Blood Urea Nitrogen 8 mg/dL (8-23); Calcium 8.1 mg/dL (8.6-10.3); Carbon Dioxide 38 mEq/L (23-29); Chloride 90 mEq/L (98-107); Glucose 100 mg/dL (70-105); Osmolality,Calculated 276 (280-300); Potassium 2.6 mEq/L (3.5-5.1); Sodium 134 mEq/L (136-145); eGFR For African Americans > 60 (> 60); eGFR For Non-African Americans > 60 (> 60)
[2021-02-07] MEDS: Albuterol 2.5 MG/3 ML NEBULIZER IH SCH ×4 (04:44→20:15)
[2021-02-07] MEDS: 0.9 % Sodium Chloride 1,000 ML IVC SCH (05:21)
[2021-02-07] MEDS: amLODIPine 5 MG TABLET PO SCH (08:41)
[2021-02-07] MEDS: Cholecalciferol (D-3) 1,000 UNIT (25MCG) TABLET PO SCH (08:41)
[2021-02-07] MEDS: Aspirin Enteric Coated 81 MG Tablet PO SCH (08:41)
[2021-02-07] MEDS: Vitamin E 200 UNIT (90MG) CAPSULE PO SCH (08:42)
[2021-02-07] MEDS: Ascorbic Acid 500 MG TABLET PO SCH (08:42)
[2021-02-07] MEDS: ZINC GLUCONATE 100 MG PO SCH (08:44)
[2021-02-07] MEDS: (Potassium 99 MG Tablet) PO SCH (08:44)
[2021-02-07] MEDS: Magnesium Oxide 400 MG TABLET PO SCH (08:44)
[2021-02-07] MEDS: Budesonide/Formoterol 80/4.5 1 PUFF INH IH SCH ×2 (10:31→20:14)
[2021-02-07] MEDS: Tiotropium 10 INH DOSE IH SCH (10:32)
[2021-02-07] MEDS: Mirtazapine 15 MG TABLET PO SCH (20:35)
[2021-02-07] MEDS ORDERED: Saliva Stimulant 44.3ml BOTTLE PO PRN (20:36)
[2021-02-08] MEDS: 0.9 % Sodium Chloride 1,000 ML IVC SCH (00:46)
[2021-02-08 01:33] LABS: BUN/Creatinine Ratio 26 (6-26); Blood Urea Nitrogen 6 mg/dL (8-23); Calcium 8.1 mg/dL (8.6-10.3); Carbon Dioxide 36 mEq/L (23-29); Chloride 93 mEq/L (98-107); Glucose 92 mg/dL (70-105); Osmolality,Calculated 277 (280-300); Potassium 2.7 mEq/L (3.5-5.1); Sodium 135 mEq/L (136-145); eGFR For African Americans > 60 (> 60); eGFR For Non-African Americans > 60 (> 60)
[2021-02-08] MEDS: Albuterol 2.5 MG/3 ML NEBULIZER IH SCH ×4 (03:34→21:15)
[2021-02-08] MEDS: Tiotropium 10 INH DOSE IH SCH (08:02)
[2021-02-08] MEDS: Budesonide/Formoterol 80/4.5 1 PUFF INH IH SCH ×2 (08:06→21:16)
[2021-02-08] MEDS: Magnesium Oxide 400 MG TABLET PO SCH (09:58)
[2021-02-08] MEDS: Aspirin Enteric Coated 81 MG Tablet PO SCH (09:58)
[2021-02-08] MEDS: Ascorbic Acid 500 MG TABLET PO SCH (09:58)
[2021-02-08] MEDS: Vitamin E 200 UNIT (90MG) CAPSULE PO SCH (09:58)
[2021-02-08] MEDS: (Potassium 99 MG Tablet) PO SCH (09:59)
[2021-02-08] MEDS: ZINC GLUCONATE 100 MG PO SCH (09:59)
[2021-02-08] MEDS: Cholecalciferol (D-3) 1,000 UNIT (25MCG) TABLET PO SCH (09:59)
[2021-02-08] MEDS: amLODIPine 5 MG TABLET PO SCH (09:59)
[2021-02-08] MEDS ORDERED: Potassium Chloride Elixir 20 MEQ/15 ML UDC PO ONE (14:28)
[2021-02-08] MEDS: Mirtazapine 15 MG TABLET PO SCH (20:00)
[2021-02-09] MEDS: 0.9 % Sodium Chloride 1,000 ML IVC SCH (01:50)
[2021-02-09] MEDS: Albuterol 2.5 MG/3 ML NEBULIZER IH SCH ×2 (04:10→07:35)
[2021-02-09] MEDS: Tiotropium 10 INH DOSE IH SCH (07:37)
[2021-02-09] MEDS: Budesonide/Formoterol 80/4.5 1 PUFF INH IH SCH (07:38)
[2021-02-09] MEDS: Vitamin E 200 UNIT (90MG) CAPSULE PO SCH (08:30)
[2021-02-09] MEDS: Ascorbic Acid 500 MG TABLET PO SCH (08:30)
[2021-02-09] MEDS: Aspirin Enteric Coated 81 MG Tablet PO SCH (08:30)
[2021-02-09] MEDS: Cholecalciferol (D-3) 1,000 UNIT (25MCG) TABLET PO SCH (08:30)
[2021-02-09] MEDS: amLODIPine 5 MG TABLET PO SCH (08:30)
[2021-02-09] MEDS: Magnesium Oxide 400 MG TABLET PO SCH (08:31)
[2021-02-09] MEDS: (Potassium 99 MG Tablet) PO SCH (08:33)
[2021-02-09] MEDS: ZINC GLUCONATE 100 MG PO SCH (08:34)
[2021-02-09 10:42] VITALS: BP 116/70; PULSE 110; TEMP 98; O2SAT 95
== END 2021-02-09 14:47 | disposition home or self-care (01) | DRG 329 ==
LOC: 3BNU 17:35 → EMEROOARM 17:35 → 3BNU 22:24 → SUATTDRO 02-04 14:17
PROVIDERS: ADMIT Surgery; ATTEND Registered Nurse

== ENCOUNTER 2022-01-16 11:31 | Inpatient (IN) ==
[2022-01-16] MEDS ORDERED: Ipratropium/Albuterol Neb 3 ML ONE (15:59)
[2022-01-16] MEDS ORDERED: Iopamidol - 370 500 ML MLS IVP ONE (16:03)
[2022-01-16] MEDS ORDERED: Azithromycin 500 MG in 0.9 % Sodium Chloride 250 ML IVPB ONE (16:05)
[2022-01-16] MEDS ORDERED: cefTRIAXone 1,000 MG in Water for inj. (sterile) 10 ML IVP ONE (16:05)
[2022-01-16] MEDS ORDERED: methylPREDNISolone 125 MG/2 ML VIAL IVP ONE (16:15)
[2022-01-16 16:30] LABS: Basophils % 0.1 %; Hematocrit 47.2 % (35.3-44.9); Immature Granulocytes % 0.4 % (0-4); Lymphocytes # 0.4 K/mcL (0.6-4.6); Mean Corpuscular HGB Conc 35.4 g/dL (31.6-35.5); Mean Corpuscular Hemoglobin 30.1 pg (28.0-33.3); Mean Corpuscular Volume 85.2 fL (83.0-100.0); Mean Platelet Volume 9.5 fL (9.4-12.4); Monocytes # 0.3 K/mcL (0.0-1.3); Monocytes % 4.2 %; Neutrophils # 6.4 K/mcL (1.6-8.9); Platelet Count 417 K/mcL (140-400); Red Blood Count 5.54 M/mcL (3.82-4.97); Red Cell Distribution Width 11.8 % (11.5-14.5); Segmented Neutrophils % 89.3 %; White Blood Count 7.2 K/mcL (4.3-11.1)
[2022-01-16 16:39] LABS: Hemoglobin 16.7 g/dL (11.5-15.4)
[2022-01-16 16:43] LABS: BUN/Creatinine Ratio 18 (6-26); Blood Urea Nitrogen 9 mg/dL (8-23); Calcium 10.1 mg/dL (8.6-10.3); Carbon Dioxide 39 mEq/L (23-29); Chloride 84 mEq/L (98-107); Glucose 127 mg/dL (70-105); Osmolality,Calculated 270 (280-300); Potassium 3.6 mEq/L (3.5-5.1); Sodium 130 mEq/L (136-145); Troponin I 0.03 ng/mL (< 0.04)
[2022-01-16 18:07] LABS: Bilirubin,Urine Negative (Negative); Blood,Urine Negative (Negative); Clarity,Urine Clear (Clear); Color,Urine Colorless (Yellow); Glucose,Urine (UA) Normal (Normal); Ketones,Urine Negative (Negative); Leukocyte Esterase,Urine Negative (Negative); Nitrite,Urine Negative (Negative); Protein,Urine Trace mg/dL (Neg-Trace); Specific Gravity,Urine 1.025 (1.010-1.025); Urobilinogen,Urine Normal (Normal)
[2022-01-16 18:18] LABS: VBG HCO3 38 mEq/L (21-27); VBG PCO2 58 mmHg (41-51); VBG PH 7.42 pH Units (7.32-7.42); VBG PO2 89 mmHg (25-50)
[2022-01-16 18:49] LABS: Adenovirus Not Detected (Not Detect); Coronavirus 229E Not Detected (Not Detect); Coronavirus HKU1 Not Detected (Not Detect); Coronavirus NL63 Not Detected (Not Detect); Coronavirus OC43 Not Detected (Not Detect); Human Metapneumovirus Not Detected (Not Detect); Human Rhinovirus/Enterovirus Not Detected (Not Detect); Influenza A Subtype 2009 H1 Not Detected (Not Detect); Influenza B Not Detected (Not Detect); Parainfluenza Virus 1 DETECTED (Not Detect); SARS-CoV-2 Not Detected (Not Detect)
[2022-01-16 18:50] LABS: Bordetella Pertussis Not Detected (Not Detect); Chlamydophila pneumoniae Not Detected (Not Detect); Mycoplasma pneumoniae Not Detected (Not Detect); Parainfluenza Virus 2 Not Detected (Not Detect); Parainfluenza Virus 3 Not Detected (Not Detect); Parainfluenza Virus 4 Not Detected (Not Detect); Respiratory Syncytial Virus Not Detected (Not Detect)
[2022-01-16] MEDS ORDERED: Ondansetron ODT 4 MG TAB.RAPDIS SL PRN (19:11)
[2022-01-16] MEDS ORDERED: Melatonin 3 MG TABLET PO PRN (19:11)
[2022-01-16] MEDS ORDERED: Naloxone 0.4 MG/ML INJ IVP PRN (19:11)
[2022-01-16] MEDS: Budesonide/Formoterol 160/4.5 1 PUFF INH IH SCH (20:56)
[2022-01-16] MEDS: Ipratropium/Albuterol Neb 3 ML IH SCH (20:56)
[2022-01-16] MEDS: Mirtazapine 15 MG TABLET PO SCH (23:00)
[2022-01-17 03:10] LABS: Hematocrit 38.4 % (35.3-44.9); Mean Corpuscular HGB Conc 34.1 g/dL (31.6-35.5); Mean Corpuscular Hemoglobin 29.4 pg (28.0-33.3); Mean Corpuscular Volume 86.1 fL (83.0-100.0); Mean Platelet Volume 9.4 fL (9.4-12.4); Platelet Count 358 K/mcL (140-400); Red Blood Count 4.46 M/mcL (3.82-4.97); Red Cell Distribution Width 11.9 % (11.5-14.5); White Blood Count 6.7 K/mcL (4.3-11.1)
[2022-01-17 03:11] LABS: Hemoglobin 13.1 g/dL (11.5-15.4)
[2022-01-17 03:43] LABS: BUN/Creatinine Ratio 24 (6-26); Blood Urea Nitrogen 11 mg/dL (8-23); Calcium 9.3 mg/dL (8.6-10.3); Carbon Dioxide 38 mEq/L (23-29); Chloride 88 mEq/L (98-107); Glucose 148 mg/dL (70-105); Magnesium 1.6 mg/dL (1.6-2.6); Osmolality,Calculated 280 (280-300); Phosphorous 3.7 mg/dL (2.7-4.5); Potassium 2.8 mEq/L (3.5-5.1); Sodium 134 mEq/L (136-145)
[2022-01-17] MEDS: Ipratropium/Albuterol Neb 3 ML IH SCH ×4 (04:00→23:00)
[2022-01-17] MEDS: *HR* Heparin 5,000 UNIT/ML VIAL SQ SCH ×2 (06:50→16:05)
[2022-01-17] MEDS: MethylPREDNISolone 40 MG/ML VIAL IVP SCH ×3 (06:57→16:04)
[2022-01-17] MEDS ORDERED: ZINC GLUCONATE 100 MG PO SCH (09:00)
[2022-01-17] MEDS: Pyridoxine (B-6) 50 MG TABLET PO SCH (09:53)
[2022-01-17] MEDS: Aspirin Enteric Coated 81 MG Tablet PO SCH (09:53)
[2022-01-17] MEDS: Ascorbic Acid 500 MG TABLET PO SCH (09:53)
[2022-01-17] MEDS: Cholecalciferol (D-3) 1,000 UNIT (25MCG) TABLET PO SCH (09:54)
[2022-01-17] MEDS: Budesonide/Formoterol 160/4.5 1 PUFF INH IH SCH ×2 (10:55→23:00)
[2022-01-17] MEDS: levoFLOXacin 500 MG TABLET PO SCH (17:08)
[2022-01-17] MEDS: Mirtazapine 15 MG TABLET PO SCH (21:01)
[2022-01-18] MEDS: MethylPREDNISolone 40 MG/ML VIAL IVP SCH ×3 (00:39→17:25)
[2022-01-18 03:02] LABS: Basophils % 0.1 %; Hematocrit 36.5 % (35.3-44.9); Hemoglobin 12.4 g/dL (11.5-15.4); Immature Granulocytes % 0.9 % (0-4); Lymphocytes # 0.3 K/mcL (0.6-4.6); Mean Corpuscular Hemoglobin 29.4 pg (28.0-33.3); Mean Corpuscular Volume 86.5 fL (83.0-100.0); Mean Platelet Volume 9.2 fL (9.4-12.4); Monocytes # 0.6 K/mcL (0.0-1.3); Monocytes % 6.6 %; Neutrophils # 8.4 K/mcL (1.6-8.9); Platelet Count 363 K/mcL (140-400); Red Blood Count 4.22 M/mcL (3.82-4.97); Red Cell Distribution Width 11.8 % (11.5-14.5); Segmented Neutrophils % 89.4 %; White Blood Count 9.4 K/mcL (4.3-11.1)
[2022-01-18 03:28] LABS: BUN/Creatinine Ratio 29 (6-26); Blood Urea Nitrogen 13 mg/dL (8-23); Calcium 8.9 mg/dL (8.6-10.3); Carbon Dioxide 42 mEq/L (23-29); Chloride 90 mEq/L (98-107); Glucose 129 mg/dL (70-105); Osmolality,Calculated 280 (280-300); Potassium 3.1 mEq/L (3.5-5.1); Sodium 134 mEq/L (136-145)
[2022-01-18] MEDS: Ipratropium/Albuterol Neb 3 ML IH SCH ×4 (03:45→21:01)
[2022-01-18] MEDS: *HR* Heparin 5,000 UNIT/ML VIAL SQ SCH ×2 (07:34→17:26)
[2022-01-18] MEDS: Budesonide/Formoterol 160/4.5 1 PUFF INH IH SCH ×2 (09:38→21:03)
[2022-01-18] MEDS: Pyridoxine (B-6) 50 MG TABLET PO SCH (10:14)
[2022-01-18] MEDS: Cholecalciferol (D-3) 1,000 UNIT (25MCG) TABLET PO SCH (10:14)
[2022-01-18] MEDS: Magnesium Oxide 400 MG TABLET PO SCH (10:14)
[2022-01-18] MEDS: Aspirin Enteric Coated 81 MG Tablet PO SCH (10:15)
[2022-01-18] MEDS: Ascorbic Acid 500 MG TABLET PO SCH (10:15)
[2022-01-18] MEDS: Potassium Chloride Elixir 20 MEQ/15 ML UDC PO SCH ×2 (10:15→20:04)
[2022-01-18] MEDS: levoFLOXacin 500 MG TABLET PO SCH (10:15)
[2022-01-18] MEDS: Vitamin E 200 UNIT (90MG) CAPSULE PO SCH (10:17)
[2022-01-18] MEDS: Mirtazapine 15 MG TABLET PO SCH (20:01)
[2022-01-19] MEDS: MethylPREDNISolone 40 MG/ML VIAL IVP SCH ×3 (00:16→20:31)
[2022-01-19] MEDS: Ipratropium/Albuterol Neb 3 ML IH SCH ×4 (04:04→21:13)
[2022-01-19 05:09] LABS: ABG Base Excess 19 mEq/L (-2 to 3); ABG HCO3 47 mEq/L (21-27); ABG Oxygen Saturation 97 % (95-98); ABG PCO2 63 mmHg (35-45); ABG PH 7.48 pH Units (7.32-7.45); ABG PO2 84 mmHg (85-104); ABG TCO2 49 mEq/L (20-26)
[2022-01-19] MEDS: *HR* Heparin 5,000 UNIT/ML VIAL SQ SCH ×2 (05:11→17:19)
[2022-01-19 06:24] LABS: Basophils % 0.2 %; Hematocrit 40.9 % (35.3-44.9); Hemoglobin 13.6 g/dL (11.5-15.4); Lymphocytes # 0.3 K/mcL (0.6-4.6); Lymphocytes % 2.6 %; Mean Corpuscular HGB Conc 33.3 g/dL (31.6-35.5); Mean Corpuscular Hemoglobin 29.2 pg (28.0-33.3); Mean Platelet Volume 9.2 fL (9.4-12.4); Monocytes # 0.5 K/mcL (0.0-1.3); Monocytes % 4.7 %; Neutrophils # 9.4 K/mcL (1.6-8.9); Platelet Count 387 K/mcL (140-400); Red Blood Count 4.65 M/mcL (3.82-4.97); Red Cell Distribution Width 11.9 % (11.5-14.5); Segmented Neutrophils % 91.5 %; White Blood Count 10.3 K/mcL (4.3-11.1)
[2022-01-19 06:50] LABS: BUN/Creatinine Ratio 30 (6-26); Blood Urea Nitrogen 14 mg/dL (8-23); Calcium 9.3 mg/dL (8.6-10.3); Carbon Dioxide 42 mEq/L (23-29); Chloride 88 mEq/L (98-107); Glucose 164 mg/dL (70-105); Osmolality,Calculated 284 (280-300); Potassium 3.4 mEq/L (3.5-5.1); Sodium 135 mEq/L (136-145)
[2022-01-19] MEDS ORDERED: Potassium Chloride Elixir 20 MEQ/15 ML UDC PO ONE (08:21)
[2022-01-19] MEDS: Pyridoxine (B-6) 50 MG TABLET PO SCH (08:53)
[2022-01-19] MEDS: Vitamin E 200 UNIT (90MG) CAPSULE PO SCH (08:54)
[2022-01-19] MEDS: Magnesium Oxide 400 MG TABLET PO SCH (08:54)
[2022-01-19] MEDS: Cholecalciferol (D-3) 1,000 UNIT (25MCG) TABLET PO SCH (08:54)
[2022-01-19] MEDS: levoFLOXacin 500 MG TABLET PO SCH (08:55)
[2022-01-19] MEDS: Aspirin Enteric Coated 81 MG Tablet PO SCH (08:56)
[2022-01-19] MEDS: Ascorbic Acid 500 MG TABLET PO SCH (08:57)
[2022-01-19] MEDS: Budesonide/Formoterol 160/4.5 1 PUFF INH IH SCH ×2 (10:54→21:13)
[2022-01-19] MEDS: Mirtazapine 15 MG TABLET PO SCH (20:31)
[2022-01-20] MEDS: Ipratropium/Albuterol Neb 3 ML IH SCH ×4 (04:08→20:26)
[2022-01-20 05:03] LABS: VBG HCO3 40 mEq/L (21-27); VBG PCO2 61 mmHg (41-51); VBG PH 7.42 pH Units (7.32-7.42); VBG PO2 155 mmHg (25-50)
[2022-01-20 05:04] LABS: Hematocrit 41.8 % (35.3-44.9); Hemoglobin 14.1 g/dL (11.5-15.4); Mean Corpuscular HGB Conc 33.7 g/dL (31.6-35.5); Mean Corpuscular Hemoglobin 29.4 pg (28.0-33.3); Mean Corpuscular Volume 87.3 fL (83.0-100.0); Mean Platelet Volume 9.1 fL (9.4-12.4); Platelet Count 403 K/mcL (140-400); Red Blood Count 4.79 M/mcL (3.82-4.97); Red Cell Distribution Width 11.9 % (11.5-14.5); White Blood Count 12.2 K/mcL (4.3-11.1)
[2022-01-20 05:36] LABS: BUN/Creatinine Ratio 31 (6-26); Blood Urea Nitrogen 15 mg/dL (8-23); Calcium 9.4 mg/dL (8.6-10.3); Carbon Dioxide 40 mEq/L (23-29); Chloride 88 mEq/L (98-107); Glucose 149 mg/dL (70-105); Osmolality,Calculated 280 (280-300); Potassium 3.6 mEq/L (3.5-5.1); Sodium 133 mEq/L (136-145)
[2022-01-20] MEDS: *HR* Heparin 5,000 UNIT/ML VIAL SQ SCH ×2 (07:11→18:30)
[2022-01-20] MEDS: Vitamin E 200 UNIT (90MG) CAPSULE PO SCH (09:02)
[2022-01-20] MEDS: MethylPREDNISolone 40 MG/ML VIAL IVP SCH ×2 (09:02→20:10)
[2022-01-20] MEDS: Ascorbic Acid 500 MG TABLET PO SCH (09:02)
[2022-01-20] MEDS: Magnesium Oxide 400 MG TABLET PO SCH (09:02)
[2022-01-20] MEDS: Cholecalciferol (D-3) 1,000 UNIT (25MCG) TABLET PO SCH (09:02)
[2022-01-20] MEDS: Aspirin Enteric Coated 81 MG Tablet PO SCH (09:02)
[2022-01-20] MEDS: levoFLOXacin 500 MG TABLET PO SCH (09:06)
[2022-01-20] MEDS: Pyridoxine (B-6) 50 MG TABLET PO SCH (09:06)
[2022-01-20] MEDS: Budesonide/Formoterol 160/4.5 1 PUFF INH IH SCH ×2 (10:33→20:26)
[2022-01-20] MEDS ORDERED: *HR* LORazepam 0.5 MG TABLET PO ONE (13:12)
[2022-01-20] MEDS: Mirtazapine 15 MG TABLET PO SCH (20:10)
[2022-01-20] MEDS: *HR* LORazepam 0.5 MG TABLET PO PRN (20:10)
[2022-01-21] MEDS: Ipratropium/Albuterol Neb 3 ML IH SCH ×4 (03:41→22:53)
[2022-01-21] MEDS: *HR* Heparin 5,000 UNIT/ML VIAL SQ SCH ×2 (05:45→16:37)
[2022-01-21 06:08] LABS: Hemoglobin 14.1 g/dL (11.5-15.4); Mean Corpuscular HGB Conc 33.6 g/dL (31.6-35.5); Mean Corpuscular Hemoglobin 29.4 pg (28.0-33.3); Mean Corpuscular Volume 87.5 fL (83.0-100.0); Mean Platelet Volume 9.2 fL (9.4-12.4); Platelet Count 390 K/mcL (140-400); Red Cell Distribution Width 11.9 % (11.5-14.5); White Blood Count 10.6 K/mcL (4.3-11.1)
[2022-01-21 06:53] LABS: BUN/Creatinine Ratio 31 (6-26); Blood Urea Nitrogen 15 mg/dL (8-23); Calcium 9.2 mg/dL (8.6-10.3); Carbon Dioxide 41 mEq/L (23-29); Chloride 83 mEq/L (98-107); Glucose 136 mg/dL (70-105); Osmolality,Calculated 269 (280-300); Potassium 3.7 mEq/L (3.5-5.1); Sodium 128 mEq/L (136-145)
[2022-01-21] MEDS ORDERED: 0.9 % Sodium Chloride 1,000 ML IVC SCH (07:45)
[2022-01-21] MEDS ORDERED: 0.9 % Sodium Chloride 1,000 ML ONE (08:04)
[2022-01-21] MEDS: MethylPREDNISolone 40 MG/ML VIAL IVP SCH ×2 (08:10→20:29)
[2022-01-21] MEDS: Vitamin E 200 UNIT (90MG) CAPSULE PO SCH (08:10)
[2022-01-21] MEDS: levoFLOXacin 500 MG TABLET PO SCH (08:10)
[2022-01-21] MEDS: Pyridoxine (B-6) 50 MG TABLET PO SCH (08:11)
[2022-01-21] MEDS: Aspirin Enteric Coated 81 MG Tablet PO SCH (08:11)
[2022-01-21] MEDS: Ascorbic Acid 500 MG TABLET PO SCH (08:11)
[2022-01-21] MEDS: Magnesium Oxide 400 MG TABLET PO SCH (08:11)
[2022-01-21] MEDS: Cholecalciferol (D-3) 1,000 UNIT (25MCG) TABLET PO SCH (08:11)
[2022-01-21] MEDS: *HR* LORazepam 0.5 MG TABLET PO PRN ×2 (08:18→21:16)
[2022-01-21] MEDS: Budesonide/Formoterol 160/4.5 1 PUFF INH IH SCH ×2 (09:50→22:53)
[2022-01-21 15:38] LABS: Bacteria,Urine Few per hpf (None-Few); Bilirubin,Urine Negative (Negative); Blood,Urine Negative (Negative); Clarity,Urine Clear (Clear); Color,Urine Colorless (Yellow); Glucose,Urine (UA) 50 mg/dL (Normal); Ketones,Urine Negative (Negative); Leukocyte Esterase,Urine Negative (Negative); Mucus,Urine Few per lpf (None-Few); Nitrite,Urine Negative (Negative); Protein,Urine Negative (Neg-Trace); RBC,Urine 0-3 per hpf (0-3); Specific Gravity,Urine 1.007 (1.010-1.025); Squamous Epithelial Cell,Urine Few per hpf (None-Few); Urobilinogen,Urine Normal (Normal); WBC,Urine 0-3 per hpf (0-3)
[2022-01-21] MEDS: Mirtazapine 15 MG TABLET PO SCH (20:29)
[2022-01-22 02:11] LABS: BUN/Creatinine Ratio 25 (6-26); Blood Urea Nitrogen 13 mg/dL (8-23); Carbon Dioxide 39 mEq/L (23-29); Chloride 91 mEq/L (98-107); Glucose 154 mg/dL (70-105); Osmolality,Calculated 281 (280-300); Potassium 3.9 mEq/L (3.5-5.1); Sodium 134 mEq/L (136-145)
[2022-01-22] MEDS: Ipratropium/Albuterol Neb 3 ML IH SCH ×4 (03:48→20:36)
[2022-01-22] MEDS: *HR* Heparin 5,000 UNIT/ML VIAL SQ SCH ×2 (05:52→17:40)
[2022-01-22] MEDS: Vitamin E 200 UNIT (90MG) CAPSULE PO SCH (07:55)
[2022-01-22] MEDS: Magnesium Oxide 400 MG TABLET PO SCH (07:55)
[2022-01-22] MEDS: Aspirin Enteric Coated 81 MG Tablet PO SCH (07:55)
[2022-01-22] MEDS: Ascorbic Acid 500 MG TABLET PO SCH (07:55)
[2022-01-22] MEDS: Cholecalciferol (D-3) 1,000 UNIT (25MCG) TABLET PO SCH (07:55)
[2022-01-22] MEDS: MethylPREDNISolone 40 MG/ML VIAL IVP SCH ×2 (07:56→19:58)
[2022-01-22] MEDS: Pyridoxine (B-6) 50 MG TABLET PO SCH (07:56)
[2022-01-22] MEDS: hydroCHLOROthiazide 25 MG TABLET PO SCH (08:59)
[2022-01-22] MEDS: Budesonide/Formoterol 160/4.5 1 PUFF INH IH SCH ×2 (09:22→20:36)
[2022-01-22] MEDS: Mirtazapine 15 MG TABLET PO SCH (19:58)
[2022-01-23] MEDS: Ipratropium/Albuterol Neb 3 ML IH SCH ×4 (03:44→22:34)
[2022-01-23] MEDS: *HR* Heparin 5,000 UNIT/ML VIAL SQ SCH ×2 (05:32→19:27)
[2022-01-23 06:35] LABS: BUN/Creatinine Ratio 26 (6-26); Blood Urea Nitrogen 12 mg/dL (8-23); Carbon Dioxide 43 mEq/L (23-29); Chloride 84 mEq/L (98-107); Glucose 132 mg/dL (70-105); Osmolality,Calculated 276 (280-300); Potassium 4.1 mEq/L (3.5-5.1); Sodium 132 mEq/L (136-145)
[2022-01-23] MEDS: Budesonide/Formoterol 160/4.5 1 PUFF INH IH SCH ×2 (10:22→22:34)
[2022-01-23] MEDS: hydroCHLOROthiazide 25 MG TABLET PO SCH (10:57)
[2022-01-23] MEDS: Ascorbic Acid 500 MG TABLET PO SCH (10:58)
[2022-01-23] MEDS: Magnesium Oxide 400 MG TABLET PO SCH (10:58)
[2022-01-23] MEDS: Cholecalciferol (D-3) 1,000 UNIT (25MCG) TABLET PO SCH (10:58)
[2022-01-23] MEDS: Vitamin E 200 UNIT (90MG) CAPSULE PO SCH (10:58)
[2022-01-23] MEDS: Aspirin Enteric Coated 81 MG Tablet PO SCH (10:58)
[2022-01-23] MEDS: MethylPREDNISolone 40 MG/ML VIAL IVP SCH ×2 (10:59→21:19)
[2022-01-23] MEDS: Pyridoxine (B-6) 50 MG TABLET PO SCH (11:43)
[2022-01-23] MEDS: Mirtazapine 15 MG TABLET PO SCH (21:18)
[2022-01-24] MEDS: Ipratropium/Albuterol Neb 3 ML IH SCH ×4 (03:21→22:40)
[2022-01-24] MEDS: *HR* Heparin 5,000 UNIT/ML VIAL SQ SCH ×2 (06:03→18:18)
[2022-01-24] MEDS: Vitamin E 200 UNIT (90MG) CAPSULE PO SCH (09:08)
[2022-01-24] MEDS: Pyridoxine (B-6) 50 MG TABLET PO SCH (09:08)
[2022-01-24] MEDS: Cholecalciferol (D-3) 1,000 UNIT (25MCG) TABLET PO SCH (09:08)
[2022-01-24] MEDS: Magnesium Oxide 400 MG TABLET PO SCH (09:08)
[2022-01-24] MEDS: hydroCHLOROthiazide 25 MG TABLET PO SCH (09:08)
[2022-01-24] MEDS: MethylPREDNISolone 40 MG/ML VIAL IVP SCH ×2 (09:09→21:40)
[2022-01-24] MEDS: Ascorbic Acid 500 MG TABLET PO SCH (09:09)
[2022-01-24] MEDS: Aspirin Enteric Coated 81 MG Tablet PO SCH (09:09)
[2022-01-24] MEDS: Budesonide/Formoterol 160/4.5 1 PUFF INH IH SCH ×2 (09:21→22:40)
[2022-01-24] MEDS: *HR* LORazepam 0.5 MG TABLET PO PRN (21:41)
[2022-01-24] MEDS: Mirtazapine 15 MG TABLET PO SCH (21:41)
[2022-01-24] MEDS: Nystatin SUSP 5 ML UD.LIQ PO SCH (21:42)
[2022-01-25] MEDS: Ipratropium/Albuterol Neb 3 ML IH SCH ×4 (03:49→22:16)
[2022-01-25] MEDS: *HR* Heparin 5,000 UNIT/ML VIAL SQ SCH ×2 (05:27→18:14)
[2022-01-25] MEDS: Budesonide/Formoterol 160/4.5 1 PUFF INH IH SCH ×2 (09:55→22:16)
[2022-01-25] MEDS: Nystatin SUSP 5 ML UD.LIQ PO SCH ×4 (10:36→21:27)
[2022-01-25] MEDS: Magnesium Oxide 400 MG TABLET PO SCH (10:36)
[2022-01-25] MEDS: MethylPREDNISolone 40 MG/ML VIAL IVP SCH (10:36)
[2022-01-25] MEDS: Pyridoxine (B-6) 50 MG TABLET PO SCH (10:36)
[2022-01-25] MEDS: Aspirin Enteric Coated 81 MG Tablet PO SCH (10:36)
[2022-01-25] MEDS: hydroCHLOROthiazide 25 MG TABLET PO SCH (10:36)
[2022-01-25] MEDS: Ascorbic Acid 500 MG TABLET PO SCH (10:36)
[2022-01-25] MEDS: Cholecalciferol (D-3) 1,000 UNIT (25MCG) TABLET PO SCH (10:37)
[2022-01-25] MEDS: Vitamin E 200 UNIT (90MG) CAPSULE PO SCH (10:37)
[2022-01-25 14:26] LABS: BUN/Creatinine Ratio 28 (6-26); Blood Urea Nitrogen 17 mg/dL (8-23); Calcium 9.7 mg/dL (8.6-10.3); Carbon Dioxide 35 mEq/L (23-29); Chloride 83 mEq/L (98-107); Glucose 226 mg/dL (70-105); Osmolality,Calculated 271 (280-300); Sodium 126 mEq/L (136-145)
[2022-01-25] MEDS: Metoprolol XL (24 HR) Succ 25 MG TAB.ER.24H PO SCH (14:35)
[2022-01-25] MEDS: *HR* LORazepam 0.5 MG TABLET PO PRN ×2 (14:35→21:28)
[2022-01-25] MEDS: Mirtazapine 15 MG TABLET PO SCH (21:28)
[2022-01-26] MEDS: Ipratropium/Albuterol Neb 3 ML IH SCH (03:52)
[2022-01-26] MEDS: *HR* Heparin 5,000 UNIT/ML VIAL SQ SCH ×2 (05:13→18:17)
[2022-01-26] MEDS ORDERED: 0.9 % Sodium Chloride 1,000 ML IVC SCH (07:30)
[2022-01-26] MEDS: Nystatin SUSP 5 ML UD.LIQ PO SCH ×4 (08:30→20:23)
[2022-01-26] MEDS: Cholecalciferol (D-3) 1,000 UNIT (25MCG) TABLET PO SCH (08:32)
[2022-01-26] MEDS: Pyridoxine (B-6) 50 MG TABLET PO SCH (08:32)
[2022-01-26] MEDS: Aspirin Enteric Coated 81 MG Tablet PO SCH (08:32)
[2022-01-26] MEDS: Metoprolol XL (24 HR) Succ 25 MG TAB.ER.24H PO SCH (08:32)
[2022-01-26] MEDS: Magnesium Oxide 400 MG TABLET PO SCH (08:32)
[2022-01-26] MEDS: Vitamin E 200 UNIT (90MG) CAPSULE PO SCH (08:32)
[2022-01-26] MEDS: predniSONE 20 MG TABLET PO SCH (08:32)
[2022-01-26] MEDS: Ascorbic Acid 500 MG TABLET PO SCH (08:33)
[2022-01-26] MEDS ORDERED: MethylPREDNISolone 40 MG/ML VIAL IVP SCH (09:00)
[2022-01-26] MEDS: Budesonide/Formoterol 160/4.5 1 PUFF INH IH SCH ×2 (09:53→22:29)
[2022-01-26] MEDS: Levalbuterol Neb 0.63 MG/3 ML IH SCH ×3 (09:53→22:29)
[2022-01-26] MEDS: Mirtazapine 15 MG TABLET PO SCH (20:22)
[2022-01-27 04:08] VITALS: BP 143/83; PULSE 82; TEMP 97.6
[2022-01-27] MEDS: Levalbuterol Neb 0.63 MG/3 ML IH SCH ×3 (04:24→15:18)
[2022-01-27] MEDS: *HR* Heparin 5,000 UNIT/ML VIAL SQ SCH (04:50)
[2022-01-27 07:08] LABS: BUN/Creatinine Ratio 29 (6-26); Blood Urea Nitrogen 12 mg/dL (8-23); Calcium 8.4 mg/dL (8.6-10.3); Carbon Dioxide 39 mEq/L (23-29); Chloride 95 mEq/L (98-107); Glucose 77 mg/dL (70-105); Osmolality,Calculated 279 (280-300); Sodium 135 mEq/L (136-145)
[2022-01-27] MEDS: Pyridoxine (B-6) 50 MG TABLET PO SCH (09:47)
[2022-01-27] MEDS: Cholecalciferol (D-3) 1,000 UNIT (25MCG) TABLET PO SCH (09:47)
[2022-01-27] MEDS: Metoprolol XL (24 HR) Succ 25 MG TAB.ER.24H PO SCH (09:47)
[2022-01-27] MEDS: Magnesium Oxide 400 MG TABLET PO SCH (09:47)
[2022-01-27] MEDS: Ascorbic Acid 500 MG TABLET PO SCH (09:47)
[2022-01-27] MEDS: Nystatin SUSP 5 ML UD.LIQ PO SCH ×2 (09:47→14:57)
[2022-01-27] MEDS: predniSONE 20 MG TABLET PO SCH (09:47)
[2022-01-27] MEDS: Aspirin Enteric Coated 81 MG Tablet PO SCH (09:47)
[2022-01-27] MEDS: Vitamin E 200 UNIT (90MG) CAPSULE PO SCH (09:50)
[2022-01-27] MEDS: Budesonide/Formoterol 160/4.5 1 PUFF INH IH SCH (09:52)
[2022-01-27 14:47] VITALS: O2SAT 99
== END 2022-01-27 18:13 | disposition home health service (06) | DRG 190 ==
LOC: EMEROOARM 11:31 → 2ANU 11:31 → SUATTDRO 18:44 → 2ANU 20:43 → SUATTDRO 01-17 10:28
PROVIDERS: ADMIT Internal Medicine; ATTEND Internal Medicine